=== PATIENT | male | born 1975 | race Caucasian/White ===

== ENCOUNTER 2017-11-25 16:45 | Emergency (ER) | payer OTHER ==
[~2017-11-25] VITALS: Ht 180.3 cm; Wt 73.9 kg
[2017-11-25 17:11] VITALS: BP 105/72
--- NOTE | 2017-11-25 17:52 | RADIOLOGY REPORT ---
EXAMINATION: XR CHEST CLINICAL INFORMATION: Cough and fever COMPARISON: None TECHNIQUE: 2 views of the chest were obtained. FINDINGS: The cardiomediastinal silhouette is normal. The lungs are clear. No consolidation, pulmonary edema, pleural effusion, or pneumothorax. The osseous structures are unremarkable. IMPRESSION: No acute abnormality.
--- NOTE | 2017-11-25 18:19 | ED INFLUENZA/URI COMPLAINT ---
History of Present Illness General Chief Complaint: General Adult Stated Complaint: COUGH Source: patient, old records Exam Limitations: no limitations Vital Signs & Intake/Output Vital Signs & Intake/Output Vital Signs Date Time Temp Pulse Resp B/P B/P Pulse O2 O2 Flow FiO2 Mean Ox Delivery Rate 11/25 1711 98.6 116 20 105/72 96 Room Air Allergies Coded Allergies: No Known Allergies (11/25/17) Reconcile Medications Azithromycin (Zithromax) 250 MG TABLET 1 DP PO AD BRONCHITIS 2 the first day followed by 1 for days 2-5 Codeine Phosphate/Guaifenesi (Guaifen-Codeine 100-10 MG/5 Ml) 10 MG-100 MG/5 ML LIQUID 10 ML PO Q6HR PRN COUGH Triage Note: TRIAGE: PT TO ER C/C PRODUCTIVE COUGH WITH GREEN PHLEGM REPORTED, ONSET LAST WEEK. FIANCE STATES HE WAS UP ALL NIGHT COUGHING. GISELA DIAS AT TRIAGE FOR EVALUATION. FLU SWAB OBTAINED/SENT FROM TRIAGE Triage Nurses Notes Reviewed? yes Onset: Gradual Duration: week(s): (1), constant Timing: recent history Severity: moderate Severity Numbers: 5 Prior Episodes/Possible Cause: occassional episodes No Modifying Factors: none Associated Symptoms: cough, fever/chills HPI: 42-year-old male with no medical history nonsmoker presents complaining of one- week history of cough productive of green sputum associated with strict a fever chills. He is not taken anything for it. We'll also contacts at home with similar symptoms. No shortness of breath chest pain abdominal pain nausea vomiting diarrhea. No history of asthma COPD. No chest pain no modifying factors or associated symptoms (Braulio Zelaya) Past History Travel History Traveled to [place] past 21 day No Medical History Any Pertinent Medical History? 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 No (Braulio Zelaya) Review of Systems Review of Systems Constitutional: Reports: no symptoms, see HPI. Comments Review of systems: See HPI, All other systems negative. Constitutional, fever, HEENT: no sore throat no congestion, no ear pain Cardiovascular: No chest pain , no palpitation Skin: no rashes, no change in skin Respiratory: cough sputum GI: No nausea no vomiting, no diarrhea Muscle skeletal: No joint pain, no back pain, no neck pain, Neurologic: , no headache Heme/endocrine: No bruising Immunology: No lymphadenopathy (Braulio Zelaya) Physical Exam Physical Exam General Appearance: well developed/nourished, no apparent distress, alert Ears, Nose, Throat: normal ENT inspection, moist mucous membrane Comments: Well-developed well-nourished patient in no apparent distress. Head/Face: Atraumatic, no maxillary/frontal sinus tenderness, no facial swelling Eyes: PERRL, EOMI, no conjunctival injection Ear:External auditory canal and Tympanic membranes clear, no erythema, no FB. Nose: atraumatic.Normal inspection: Throat: Moist mucous membranes.Pharynx normal. No pharyngeal erythema/exudate seen. No stridor/drooling or assymetry. No swelling or edema. Neck: Supple, no lymphadenopathy, FROM Back: FROM Cardiovascular: Regular rate and rhythms no murmur Respiratory: Chest nontender.There were no bony deformities, no asymmetry. No respiratory distress. Patient speaking in full complete sentences. Breath sounds clear to auscultation bilaterally: NO W/R/R Extremities: full range of motion Neuro: awake, alert, and oriented to person, place and time. There were no obvious focal neurologic abnormalities. Skin: Warm & dry;No appreciable rash on exposed skin Psych: Mood affect normal, normal memory normal judgment. Core Measures Sepsis Present: No Sepsis Focused Exam Completed? No (Braulio Zelaya) Progress Differential Diagnosis: influenza, pneumonia, pharyngitis, sinusitis Plan of Care: Orders Procedure Date/time Status RAPID VIRAL INFLUENZA A 11/25 1713 Complete Microbiology 11/25 1714 NASOPHARYN: Influenza Virus A & B Rapid Smear - COMP I discussed with the patient at length all of their results. I had an extensive conversation regarding need for close follow up with their primary care physician this week as well as return precautions. I answered all of their questions, they feel comfortable with the plan and follow-up care. I discussed with the patient/family the medications that they will receive. I gave them signs and symptoms that could indicate an adverse reaction. I have advised them to limit their activities until they can see how they respond to the medication. Diagnostic Imaging: Viewed by Me: Radiology Read. Discussed w/RAD: Radiology Read. Radiology Impression: PATIENT: PARMINDER RECINOS PRESENT AGE: 42 PATIENT ACCOUNT NO: [id number] : 77 LOCATION: [facility] ORDERING PHYSICIAN: Braulio HIGGINS SERVICE DATE: 11/25/17 EXAM TYPE: RAD - XRY-CHEST XRAY, TWO VIEWS EXAMINATION: XR CHEST CLINICAL INFORMATION: Cough and fever COMPARISON: None TECHNIQUE: 2 views of the chest were obtained. FINDINGS: The cardiomediastinal silhouette is normal. The lungs are clear. No consolidation, pulmonary edema, pleural effusion, or pneumothorax. The osseous structures are unremarkable. IMPRESSION: No acute abnormality. DICTATED BY: Zoë Thomas MD DATE/TIME DICTATED:11/25/171747 MEDICAL RECEPTIONIST ASSISTANT:JOSÉ DATE/ TIME TRANSCRIBED:11/25/171747 CONFIDENTIAL, DO NOT COPY WITHOUT APPROPRIATE AUTHORIZATION. <Electronically signed in Other Vendor System> SIGNED BY: Zoë Thomas MD 11/25/171751 Initial ED EKG: none (Braulio Zelaya) Departure Departure Time of Disposition: 1830 Disposition: HOME OR SELF CARE Condition: Stable Clinical Impression Primary Impression: Bronchitis Referrals: Mary Valverde APRN (PCP/Family) Additional Instructions: ZPAK AND ROBITUSSIN WITH CODEINE. USE CAUTION THIS WILL MAKE YOU DROWSY. NO DRIVING OR DRINKING ALCOHOL WHILE TAKING. FOLLOW UP WITH YOUR PMD, INTERCHANGE TYLENOL AND MOTRIN. Departure Forms: Customer Survey General Discharge Information Prescriptions: Current Visit Scripts Azithromycin (Zithromax) 1 DP PO AD #6 TAB 2 the first day followed by 1 for days 2-5 Codeine Phosphate/Guaifenesi (Guaifen-Codeine 100-10 MG/5 Ml) 10 ML PO Q6HR PRN COUGH #150 ML (Braulio Zelaya) PA/DIE MOUNTER Co-Sign Statement Statement: ED Attending supervision documentation- I saw and evaluated the patient. I have also reviewed all the pertinent lab results and diagnostic results. I agree with the findings and the plan of care as documented in the PA's/DIE MOUNTER's documentation. x I have reviewed the ED Record and agree with the PA's/DIE MOUNTER's documentation. [] Additions or exceptions (if any) to the PAs/DIE MOUNTER's note and plan are summarized below: [] (Lennox LEONARDO,Seamus)
[2017-11-25] MEDS ORDERED: ZITHROMAX250 M2 PO (18:33)
[2017-11-25] MEDS ORDERED: GUAIFEN-CODEIN118 M1 PO (18:33)
== END 2017-11-25 18:42 ==
LOC: ERH 16:45
DX: J40 Bronchitis, not specified as acute or chronic (principal)
CPT/HCPCS: 71046; 87804; 87804-59

== ENCOUNTER 2018-01-15 13:44 | Emergency (ER) | payer OTHER ==
[~2018-01-15] VITALS: Ht 180.3 cm; Wt 68.0 kg
[~2018-01-15 13:44] MED LIST: GUAIFEN-CODEIN118 M1 PO; ZITHROMAX250 M2 PO
--- NOTE | 2018-01-15 14:04 | ED GI/GU/ABDOMINAL COMPLAINT ---
History of Present Illness General Chief Complaint: General Adult Stated Complaint: ABDOMINAL PAIN, SINUS PAIN Source: patient Exam Limitations: no limitations Vital Signs & Intake/Output Vital Signs & Intake/Output Vital Signs Date Time Temp Pulse Resp B/P B/P Pulse O2 O2 Flow FiO2 Mean Ox Delivery Rate 01/15 1521 98.4 80 16 129/67 97 Room Air 01/15 1351 97.7 96 20 124/77 97 Room Air Allergies Coded Allergies: No Known Allergies (11/25/17) Triage Note: C/O ABDOMINAL PAIN WITH N/V X 1 TODAY. STATES HE HAS SINUS PAIN. PT REPORTS HE HAS SEASONAL ALLERGIES Triage Nurses Notes Reviewed? yes Duration: constant Timing: recent history Quality/Severity: cramping, mild Location: generalized abdomen Radiation: no radiation HPI: Patient is a 42-year-old male with a unremarkable past medical history of present emergency room with concerns of a 3 to four-day history of right-sided sinus pressure and pain with associated symptoms of mild nausea abdominal discomfort and 2 days of loose watery diarrhea production. Positive sick contacts at home. Denies any vomiting denies any change in symptoms of eating and drinking. Denies any significant alcohol use. No blood no melena noted from bowel production. Denies any fever chills back pain chest pain cough shortness of breath sore throat. (Braulio Cardoso) Reconcile Medications Dicyclomine HCl 10 MG CAPSULE 1 CAP PO TID PRN ENTERITIS Fluticasone Propionate (Flonase Allergy Relief) 50 MCG/ACTUATION SPRAY.SUSP 2 SPRAY JUSTICE DAILY PRN CONGESTION Ondansetron HCl (Zofran) 4 MG TABLET 1 TAB PO Q6-8P PRN NAUSEA (Pankaj Sanchez DO) Past History Travel History Traveled to [place] past 21 day No Medical History Any Pertinent Medical History? 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 No (Braulio Cardoso) Review of Systems Review of Systems Constitutional: Reports: no symptoms. EENTM: Reports: see HPI. Respiratory: Reports: no symptoms. Cardiovascular: Reports: no symptoms. GI: Reports: see HPI, abdominal pain. Genitourinary: Reports: no symptoms. Musculoskeletal: Reports: no symptoms. Skin: Reports: no symptoms. Neurological/Psychological: Reports: no symptoms. Hematologic/Endocrine: Reports: no symptoms. Immunologic/Allergic: Reports: no symptoms. All Other Systems: Reviewed and Negative (Braulio Cardoso) Physical Exam Physical Exam General Appearance: no apparent distress, alert, comfortable Head: atraumatic Eyes: Bilateral: normal appearance, PERRL, EOMI. Ears, Nose, Throat, Mouth: hearing grossly normal, moist mucous membrane, NOTED TENDERNESS TO RIGHT FRONTAL AND MAXILLARY SINUS Neck: normal inspection Respiratory: normal breath sounds, chest non-tender Cardiovascular: regular rate/rhythm Gastrointestinal: normal bowel sounds, soft Back: normal inspection Extremities: normal range of motion Skin: intact, normal color, warm/dry Core Measures ACS in differential dx? No Sepsis Present: No Sepsis Focused Exam Completed? No (Braulio Cardoso) Progress Differential Diagnosis: AAA, AMI, appendicitis, biliary colic, bowel obstruction , colon cancer, cholecystitis, diverticulitis, gastritis, hepatitis, hernia, hemorrhoids, ischemic bowel, inflamm bowel dis, orchitis, pancreatitis, prostatitis, peptic ulcer, PUD/GERD, perforated viscous, pyelonephritis, SBO, testicular torsion, ureterolithiasis, urinary retention, urethritis, UTI/pyelo Plan of Care: Orders Procedure Date/time Status LIPASE 01/15 1424 Complete COMPREHENSIVE METABOLIC PANEL 01/15 1424 Complete CBC WITHOUT DIFFERENTIAL 01/15 1424 Complete Laboratory Tests 01/15/18 1443: Anion Gap 12, Estimated GFR > 60, BUN/Creatinine Ratio 18.0, Glucose 87, Calcium 9.1, Total Bilirubin 1.6 H, AST 17, ALT 25, Alkaline Phosphatase 49, Total Protein 7.0, Albumin 4.1, Globulin 2.9, Albumin/Globulin Ratio 1.4, Lipase 72, CBC w Diff NO MAN DIFF REQ, RBC 5.06, MCV 87.6, MCH 29.8, MCHC 34.0, RDW 12.9, MPV 10.8 H, Gran % 66.1, Lymphocytes % 22.2, Monocytes % 5.4, Eosinophils % 5.8 H, Basophils % 0.5, Absolute Granulocytes 3.6, Absolute Lymphocytes 1.2, Absolute Monocytes 0.3, Absolute Eosinophils 0.3, Absolute Basophils 0 Differential diagnoses include pharyngitis sinusitis and mastoiditis otitis media otitis externa viral syndrome Patient on initial examination denies any abdominal pain however there is mild tenderness upon palpation to the generalized abdominal region, patient is afebrile patient is able tolerate by mouth UPON arrival I reviewed all blood work with patient no acute findings, patient also had relief of nausea prior to discharge. Due to history of present illness and exam findings or suspicion of viral syndrome sinusitis and enteritis. No overt concerns at this time for CT scan imaging. Initial ED EKG: none (Braulio Cardoso) Departure Departure Disposition: HOME OR SELF CARE Condition: Stable Clinical Impression Primary Impression: Viral syndrome Secondary Impressions: Abdominal pain, Nausea, Sinusitis Referrals: Mary Valverde APRN (PCP/Family) Haseeb Richey MD Additional Instructions: As discussed begin a 48-hour history regimen of clear liquid bland diet. Begin the prescription of Bentyl for your abdominal complaints, Zofran for nausea, and Flonase for congestion. Prescriptions waiting at [facility]. If symptoms worsen or if YOU develop new concerning symptom return to emergency room. Departure Forms: Customer Survey General Discharge Information Prescriptions: Current Visit Scripts Dicyclomine HCl 1 CAP PO TID PRN ENTERITIS #9 CAP Ondansetron HCl (Zofran) 1 TAB PO Q6-8P PRN NAUSEA #5 TAB Fluticasone Propionate (Flonase Allergy Relief) 2 SPRAY JUSTICE DAILY PRN CONGESTION #1 BOT (Braulio Cardoso) PA/COFOUNDER Co-Sign Statement Statement: ED Attending supervision documentation- [] I saw and evaluated the patient. I have also reviewed all the pertinent lab results and diagnostic results. I agree with the findings and the plan of care as documented in the PA's/COFOUNDER's documentation. [X] I have reviewed the ED Record and agree with the PA's/COFOUNDER's documentation. [] Additions or exceptions (if any) to the PAs/COFOUNDER's note and plan are summarized below: [] (Pankaj Sanchez DO
[2018-01-15 14:47] LABS: ABSOLUTE BASOPHIL COUNT 0 /CUMM (0.0-0.2); ABSOLUTE EOSINOPHIL COUNT 0.3 /CUMM (0.0-0.7); ABSOLUTE GRANULOCYTE CT 3.6 /CUMM (1.4-6.5); ABSOLUTE LYMPH COUNT 1.2 /CUMM (1.2-3.4); ABSOLUTE MONOCYTE COUNT 0.3 /CUMM (0.10-0.60); BASOPHIL % 0.5 % (0.0-2.0); EOSINOPHIL % 5.8 % (0-5); GRANULOCYTE % 66.1 % (42.2-75.2); HEMATOCRIT 44.3 % (42-52); MEAN CORPUSCULAR HGB 29.8 PG (27.0-31.0); MEAN CORPUSCULAR VOLUME 87.6 FL (80.0-94.0); MEAN PLATELET VOLUME 10.8 FL (7.4-10.4); PLATELET COUNT 188 /CUMM (130-400); RBC DISTRIBUTION WIDTH 12.9 % (11.5-14.5); RED BLOOD CELL CT 5.06 /CUMM (4.70-6.10); WHITE BLOOD CELL COUNT 5.5 /CUMM (4.8-10.8)
[2018-01-15] MEDS ORDERED: ZOFRAN4 M2 PO (15:16)
[2018-01-15] MEDS ORDERED: FLONASE ALLERG9.9 ML NAS (15:16)
[2018-01-15] MEDS ORDERED: DICYCLOMINE HCL10 M1 PO (15:16)
[2018-01-15 15:21] VITALS: BP 129/67
== END 2018-01-15 15:25 ==
LOC: ERH 13:44
PROVIDERS: Physician Assistant
DX: B34.9 Viral infection, unspecified (principal); J32.9 Chronic sinusitis, unspecified
CPT/HCPCS: J3101

== ENCOUNTER 2018-04-06 08:33 | Emergency (ER) | payer OTHER ==
[~2018-04-06] VITALS: Ht 180.3 cm; Wt 66.2 kg
[~2018-04-06 08:33] MED LIST changes: +AUGMENTIN 875-1 EACH PO; +DICYCLOMINE HCL10 M1 PO; +FLONASE ALLERG9.9 ML NAS; +FLONASE ALLERG9.9 ML NASB; +PREDNISONE50 M1 PO; +PROBIOTIC1 EACH PO; +ZOFRAN4 M2 PO
--- NOTE | 2018-04-06 09:08 | RADIOLOGY REPORT ---
EXAMINATION: XR CHEST CLINICAL INFORMATION: Chest pain. COMPARISON: None TECHNIQUE: 2 views of the chest were obtained. FINDINGS: The lungs are well-expanded and clear. The heart size and pulmonary vascularity is normal no gross bony abnormality seen. IMPRESSION: Unremarkable chest exam.
[2018-04-06 09:19] LABS: ABSOLUTE BASOPHIL COUNT 0 /CUMM (0.0-0.2); ABSOLUTE EOSINOPHIL COUNT 0.3 /CUMM (0.0-0.7); ABSOLUTE GRANULOCYTE CT 4.9 /CUMM (1.4-6.5); ABSOLUTE LYMPH COUNT 1.4 /CUMM (1.2-3.4); ABSOLUTE MONOCYTE COUNT 0.2 /CUMM (0.10-0.60); BASOPHIL % 0.3 % (0.0-2.0); EOSINOPHIL % 3.8 % (0-5); GRANULOCYTE % 72.2 % (42.2-75.2); HEMATOCRIT 47.3 % (42-52); MEAN CORPUSCULAR HGB 29.2 PG (27.0-31.0); MEAN CORPUSCULAR HGB CONC 32.7 G/DL (33.0-37.0); MEAN CORPUSCULAR VOLUME 89.3 FL (80.0-94.0); MEAN PLATELET VOLUME 10.7 FL (7.4-10.4); PLATELET COUNT 181 /CUMM (130-400); RBC DISTRIBUTION WIDTH 12.9 % (11.5-14.5); WHITE BLOOD CELL COUNT 6.8 /CUMM (4.8-10.8)
--- NOTE | 2018-04-06 11:26 | ED CARDIAC/CP/PALPITATIONS ---
History of Present Illness General Chief Complaint: Chest Pain Stated Complaint: CP ABD PAIN Source: patient Exam Limitations: no limitations Vital Signs & Intake/Output Vital Signs & Intake/Output Vital Signs Date Time Temp Pulse Resp B/P B/P Pulse O2 O2 Flow FiO2 Mean Ox Delivery Rate 04/06 1213 98.5 71 18 121/82 99 Room Air 04/06 1144 98 Room Air 04/06 0844 98.6 110 18 130/84 99 Room Air Allergies Coded Allergies: No Known Allergies (11/25/17) Reconcile Medications Amoxicillin/Potassium Clav (Augmentin 875-125 Tablet) 875 MG-125 MG TABLET 1 TAB PO BID SINUSITIS Fluticasone Propionate (Flonase Allergy Relief) 50 MCG/ACTUATION SPRAY.SUSP 2 SPRAY NASB ONCE DAILY PRN CONGESTION Lactobacillus Acidophilus (Probiotic) (Unknown Strength) CAPSULE (Unknown Dose ) PO DAILY PROBIOTIC (Reported) Prednisone 50 MG TABLET 1 TAB PO DAILY SINUSITIS Triage Note: 42 YO MALE TO TRIAGE FOR EVAL OF CHEST PAIN RADIATING TO L JAW SINCE SATURDAY. REPORTS HE IS UNDER ALOT OF STRESS. DENIES NAUSEA/VOTMINIG. DENIES ABD PAIN. Triage Nurses Notes Reviewed? yes Onset: Abrupt Duration: day(s): (4), intermittent Timing: recent history Quality/Severity: moderate, severe Radiation: no radiation HPI: 42-year-old male comes into the emergency room with left-sided chest pain with some abdominal cramping and diarrhea. Symptoms going on for the past 4 days intermittently. Some shortness of breath at times. Some associated nausea but no vomiting. Denies any fever. He's had intermittent constipation with loose stool. It was blood-tinged one time. He has a history of fall issues and has had a colonoscopy within the last year which was unremarkable. He denies any illicit drug use. Comes in today for further evaluation. (Og Durán) Past History Travel History Traveled to [place] past 21 day No Medical History Any Pertinent Medical History? 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 No (Og Durán) Review of Systems Review of Systems Constitutional: Reports: no symptoms. EENTM: Reports: no symptoms. Respiratory: Reports: see HPI. Cardiovascular: Reports: see HPI. GI: Reports: see HPI. Genitourinary: Reports: no symptoms. Musculoskeletal: Reports: no symptoms. Skin: Reports: no symptoms. Neurological/Psychological: Reports: no symptoms. Hematologic/Endocrine: Reports: no symptoms. Immunologic/Allergic: Reports: no symptoms. All Other Systems: Reviewed and Negative (Og Durán) Physical Exam Physical Exam General Appearance: well developed/nourished, no apparent distress, alert, awake Head: atraumatic Eyes: Bilateral: normal appearance. Ears, Nose, Throat: normal ENT inspection, hearing grossly normal Neck: normal inspection Respiratory: normal breath sounds, no respiratory distress Cardiovascular: regular rate/rhythm Gastrointestinal: soft, non-tender Back: normal inspection Extremities: normal inspection, normal range of motion Neurologic/Psych: awake, alert, oriented x 3 Skin: intact, normal color Core Measures ACS in differential dx? No CVA/TIA Diagnosis No Sepsis Present: No Sepsis Focused Exam Completed? No (Og Durán) Progress Differential Diagnosis: AMI, cholecystitis, costochondritis, hyperventilation, musculoskeletal pain, myocarditis, pancreatitis, pericarditis, pneumonia, pneumothorax, pulmonary embolism, PUD/GERD, respiratory failure, unstable angina Plan of Care: Orders Procedure Date/time Status TROPONIN LEVEL 04/06 1145 Complete EKG 04/06 1145 Active TROPONIN LEVEL 04/06 0842 Complete LIPASE 04/06 0842 Complete D-DIMER 04/06 0842 Complete COMPREHENSIVE METABOLIC PANEL 04/06 0842 Complete CBC WITHOUT DIFFERENTIAL 04/06 0842 Complete EKG 04/06 0835 Active Laboratory Tests 04/06/18 1203: Troponin I < 0.01 04/06/18 0846: Anion Gap 12, Estimated GFR > 60, BUN/Creatinine Ratio 20.0, Glucose 133 H, Calcium 9.2, Total Bilirubin 0.4, AST 16 L, ALT 24, Alkaline Phosphatase 44, Troponin I < 0.01, Total Protein 6.6, Albumin 3.9, Globulin 2.7, Albumin/ Globulin Ratio 1.4, Lipase 71, D-Dimer High Sensitivty < 200, CBC w Diff NO MAN DIFF REQ, RBC 5.30, MCV 89.3, MCH 29.2, MCHC 32.7 L, RDW 12.9, MPV 10.7 H, Gran % 72.2, Lymphocytes % 20.5, Monocytes % 3.2, Eosinophils % 3.8, Basophils % 0.3, Absolute Granulocytes 4.9, Absolute Lymphocytes 1.4, Absolute Monocytes 0.2 , Absolute Eosinophils 0.3, Absolute Basophils 0 Diagnostic Imaging: Viewed by Me: Radiology Read. Discussed w/RAD: Radiology Read. Radiology Impression: PATIENT: PARMINDER RECINOS PRESENT AGE: 42 PATIENT ACCOUNT NO: [id number] : 77 LOCATION: [facility] ORDERING PHYSICIAN: Colleen Gomez MD SERVICE DATE: 04/06/18 EXAM TYPE: RAD - XRY-CHEST XRAY, TWO VIEWS EXAMINATION: XR CHEST CLINICAL INFORMATION: Chest pain. COMPARISON: None TECHNIQUE: 2 views of the chest were obtained. FINDINGS: The lungs are well-expanded and clear. The heart size and pulmonary vascularity is normal no gross bony abnormality seen. IMPRESSION: Unremarkable chest exam. DICTATED BY: Royce Sosa MD DATE/TIME DICTATED:04/06/18903 COLOR COATER:JOSÉ DATE/TIME TRANSCRIBED:04/06/18903 CONFIDENTIAL, DO NOT COPY WITHOUT APPROPRIATE AUTHORIZATION. <Electronically signed in Other Vendor System> SIGNED BY: Royce Sosa MD 04/06/18907 Initial ED EKG: normal sinus rhythm, rate (108), borderline t wave abnormalities Repeat EKG: unchanged (rate improved, 83) (Og Durán) Departure Departure Disposition: HOME OR SELF CARE Condition: Stable Clinical Impression Primary Impression: Atypical chest pain Secondary Impressions: Abdominal pain Referrals: Mary Valverde APRN (PCP/Family) Additional Instructions: Follow-up with your primary care doctor. Return if any concerns worsening symptoms. Please go over all results of today's visit with your primary care doctor. Contact your primary care doctor to let them know you were here in the emergency room. There may be nonspecific findings which may not be related to your visit today here in the emergency room but may require further evaluation and chronic monitoring by your primary care doctor. If you had a laceration today the chance of foreign body always remains. You should follow-up with your primary care doctor for recheck in 3-5 days for a wound check. If you had an x-ray done there is a chance that a fracture could have been missed on initial read and you should follow-up with your primary care doctor for repeat x-rays if symptoms persist. If your blood pressure was elevated here in the emergency room please have rechecked by our primary care doctor within the next 48. If you were prescribed a narcotic here in the emergency room or any type of controlled substances you're not allowed to drive while taking this medication or operate any type of heavy machinery. Narcotics can make you feel lightheaded dizziness nausea and can cause constipation. You may need to slat pickler a stool softener. Thank you for choosing [facility] emergency room. Please return to the emergency room immediately if you have any other concerns worsening of symptoms. Departure Forms: Customer Survey General Discharge Information Comments 04/06/2018 2:21:33 PM Patient clinically looks well. In no apparent distress. Nontoxic-appearing. Heart score is 1. Low suspicion for an acute coronary syndrome. Negative d- dimer. No acute abdomen. Recent normal colonoscopy. Normal white blood cell count and normal labs. Do not feel CT scan of abdomen is indicated at this time. Referred back to his GI doctor and primary care doctor. Patient was also told to follow up with cardiology for outpatient workup. He understands and agrees with plan of care. (Og Durán) PA/LINE SERVICE SUPERVISOR Co-Sign Statement Statement: ED Attending supervision documentation- [] I saw and evaluated the patient. I have also reviewed all the pertinent lab results and diagnostic results. I agree with the findings and the plan of care as documented in the PA's/LINE SERVICE SUPERVISOR's documentation. [x] I have reviewed the ED Record and agree with the PA's/LINE SERVICE SUPERVISOR's documentation. [] Additions or exceptions (if any) to the PAs/LINE SERVICE SUPERVISOR's note and plan are summarized below: [] (Jason LEONARDO,[facility]) Critical Care Note Critical Care Note Critical Care Time: non-applicable (Og Durán)
[2018-04-06 12:13] VITALS: BP 121/82
== END 2018-04-06 13:49 ==
LOC: ERH 08:33
PROVIDERS: Emergency Medicine
DX: R07.89 Other chest pain (principal); R10.9 Unspecified abdominal pain; R19.7 Diarrhea, unspecified
CPT/HCPCS: 71046; 93005; 93010